=== PATIENT | male | born 1980 | race American Indian/Alaskan Native ===

== ENCOUNTER 2018-05-11 11:20 | Emergency (ER) | payer SELFPAY ==
[2018-05-11] MEDS ORDERED: ZOFRAN ODT PO ONE (11:25)
[2018-05-11] MEDS ORDERED: PEPCID IV STA (11:27)
[2018-05-11] MEDS ORDERED: LEVSIN SL SL ONE (11:28)
--- NOTE | 2018-05-11 11:39 | Emergency Department Report ---
Blank Doc - Documentation Documentation: 38 year old male c/o 3 day N/V secondary to "bad reflux" needs medicaiton. ab dominal pain minimal just week because cant eat.
[2018-05-11 11:51] LABS: Basophils % (Auto) 0.4 % (0.0-1.8); Hematocrit 47.3 % (35.5-45.6); Hemoglobin 15.9 gm/dl (11.8-15.2); Lymphocytes # (Auto) 0.7 K/mm3 (1.2-5.4); Lymphocytes % (Auto) 7.1 % (13.4-35.0); Mean Corpuscular HGB Conc 34 % (32-34); Mean Corpuscular Volume 92 fl (84-94); Monocytes # (Auto) 0.4 K/mm3 (0.0-0.8); Monocytes % (Auto) 4.2 % (0.0-7.3); Platelet Count 242 K/mm3 (140-440); Red Blood Count 5.14 M/mm3 (3.65-5.03); Red Cell Distribution Width 13.5 % (13.2-15.2)
[2018-05-11] MEDS ORDERED: ZOFRAN IV ONE (11:59)
[2018-05-11] MEDS ORDERED: NACL 0.9% 1000 ML 1,000 ML IV ONE (11:59)
[2018-05-11 12:04] LABS: Alanine Aminotransferase 33 units/L (7-56); Albumin 4.9 g/dL (3.9-5); BUN/Creatinine Ratio 17; Blood Urea Nitrogen 12 mg/dL (9-20); Calcium 9.8 mg/dL (8.4-10.2); Hemolysis Index 28
--- NOTE | 2018-05-11 12:14 | Emergency Department Report ---
ED N/V/D HPI - General Chief complaint: Nausea/Vomiting/Diarrhea Stated complaint: N/V Time Seen by Provider: 05/11/18 11:25 Source: patient Mode of arrival: Wheelchair Limitations: No Limitations - History of Present Illness Initial comments: Pt is a 38 yo male who presents to the ED with c/o N/V/D that began 2-3 days ago. He denies any fever, urinary sx, or abdominal pain. The patient states he has not been able to tolerate much PO intake. He denies any sick contacts, new foods, or new water sources. The patient states that he has "really bad acid reflux" but has not been taking any medication for it. - Related Data Previous Rx's Medication Instructions Recorded Last Taken Type Famotidine [Pepcid] 20 mg PO DAILY #30 tablet 05/11/18 Unknown Rx Hyoscyamine Subl [Levsin Sl 0.125 0.125 mg SL Q6HR PRN #10 tab 05/11/18 Unknown Rx TAB] Ondansetron [Zofran Odt] 4 mg PO Q8HR PRN #14 tab.rapdis 05/11/18 Unknown Rx Allergies Allergy/AdvReac Type Severity Reaction Status Date / Time No Known Allergies Allergy Unverified 05/11/18 11:20 ED Review of Systems ROS: Stated complaint: N/V Other details as noted in HPI Comment: All other systems reviewed and negative ED Past Medical Hx - Past Medical History Previous Medical History?: Yes Hx GERD: Yes - Surgical History Past Surgical History?: No Additional Surgical History: bilateral wrist - Social History Smoking Status: Current Every Day Smoker Substance Use Type: Alcohol - Medications Home Medications: Home Medications Medication Instructions Recorded Confirmed Last Taken Type Famotidine [Pepcid] 20 mg PO DAILY #30 tablet 05/11/18 Unknown Rx Hyoscyamine Subl [Levsin Sl 0.125 0.125 mg SL Q6HR PRN #10 tab 05/11/18 Unknown Rx TAB] Ondansetron [Zofran Odt] 4 mg PO Q8HR PRN #14 tab.rapdis 05/11/18 Unknown Rx ED Physical Exam - General Limitations: No Limitations General appearance: alert, in no apparent distress - Head Head exam: Present: atraumatic, normocephalic - Eye Eye exam: Present: normal appearance - ENT ENT exam: Present: mucous membranes dry (mildly ) - Respiratory Respiratory exam: Present: normal lung sounds bilaterally. Absent: respiratory distress, wheezes, rales, rhonchi, stridor, chest wall tenderness, accessory muscle use, decreased breath sounds, prolonged expiratory - Cardiovascular Cardiovascular Exam: Present: regular rate, normal rhythm, normal heart sounds. Absent: systolic murmur, rubs, gallop - GI/Abdominal GI/Abdominal exam: Present: soft, normal bowel sounds, hernia (small left sided inguinal hernia easily reducible, not incarcerated, not strangulated ). Absent: distended, tenderness, guarding, rebound, rigid - Neurological Exam Neurological exam: Present: alert, oriented X3 - Psychiatric Psychiatric exam: Present: normal affect, normal mood ED Course Vital Signs 05/11/18 05/11/18 11:25 13:23 Temperature 98.4 F Pulse Rate 101 H 71 Respiratory 20 18 Rate Blood Pressure 154/111 Blood Pressure 154/96 [Right] O2 Sat by Pulse 99 99 Oximetry ED Medical Decision Making - Lab Data Result diagrams: 05/11/18 11:32 05/11/18 11:32 Laboratory Results - last 24 hr 05/11/18 05/11/18 11:32 11:32 WBC 9.5 RBC 5.14 H Hgb 15.9 H Hct 47.3 H MCV 92 MCH 31 MCHC 34 RDW 13.5 Plt Count 242 Lymph % (Auto) 7.1 L [place] % (Auto) 4.2 Eos % (Auto) 0.0 Baso % (Auto) 0.4 Lymph # 0.7 L [place] # 0.4 Eos # 0.0 Baso # 0.0 Seg Neutrophils % 88.3 H Seg Neutrophils # 8.4 H Sodium 143 Potassium 4.3 Chloride 99.2 Carbon Dioxide 23 Anion Gap 25 BUN 12 Creatinine 0.7 L Estimated GFR > 60 BUN/Creatinine Ratio 17 Glucose 132 H Calcium 9.8 Total Bilirubin 0.70 AST 25 ALT 33 Alkaline Phosphatase 85 Total Protein 8.5 H Albumin 4.9 Albumin/Globulin Ratio 1.4 Lipase 27 - Medical Decision Making Pt presents with N/V/D for the last 2-3 days. Pt has GERD sx. He denies any abdominal pain, fever, or any other sx. After medications pt feels much better. PO challenged in ED and able to tolerate PO intake. Advised pt to follow up with primary care provider in the next 2-3 days. Gave pt medication for nausea and GERD. Return to ED if any new or worsening symptoms. - Differential Diagnosis N/V/D, gastroenteritis, viral syndrome Critical care attestation.: If time is entered above; I have spent that time in minutes in the direct care of this critically ill patient, excluding procedure time. ED Disposition Clinical Impression: Nausea vomiting and diarrhea Inguinal hernia Qualifiers: Obstruction and gangrene presence: without obstruction or gangrene Laterality: unilateral Recurrence: not specified as recurrent Qualified Code(s): K40.90 - Unilateral inguinal hernia, without obstruction or gangrene, not specified as recurrent Disposition: DC- TO HOME OR SELFCARE Is pt being admited?: No Does the pt Need Aspirin: No Condition: Stable Instructions: Inguinal Hernia (ED), Acute Nausea and Vomiting (ED) Additional Instructions: Follow up with primary care doctor in the next 2-3 days. Follow up with general surgery for inguinal hernia. Take all medication as prescribed. Return to the ED if any new or worsening symptoms. Prescriptions: Hyoscyamine Subl [Levsin Sl 0.125 TAB] 0.125 mg SL Q6HR PRN #10 tab PRN Reason: Spasms Famotidine [Pepcid] 20 mg PO DAILY #30 tablet Ondansetron [Zofran Odt] 4 mg PO Q8HR PRN #14 tab.rapdis PRN Reason: Nausea And Vomiting Referrals: [facility] DORAL MD SHARIFA [Primary Care Provider] - 2-3 Days DUSTIN ZAPIEN DO [Staff Physician] - 3-5 Days Time of Disposition: 12:53 Print Language: SIN[place]
[2018-05-11 13:24] VITALS: BP 154/96
== END 2018-05-11 13:23 | disposition home or self-care (01) ==
LOC: ED 11:20
DX: K40.90 Unilateral inguinal hernia, without obstruction or gangrene, not specified as recurrent (principal); K21.9 Gastro-esophageal reflux disease without esophagitis; F17.200 Nicotine dependence, unspecified, uncomplicated
CPT/HCPCS: 36415; 80053; 83690; 85025; 96361; 96374; 96375; 99283; J2405; J7030; Q0162